=== PATIENT | female | born 1975 | race Caucasian/White ===

== ENCOUNTER 2018-07-07 20:07 | Emergency (ER) | payer OTHER ==
[2018-07-07] MEDS ORDERED: Ketorolac INJ* 30 MG/ML 1 ML VIAL IV PUSH ONE (20:28)
[2018-07-07] MEDS ORDERED: Ketorolac INJ* 30 MG/ML 1 ML VIAL IM ONE (21:41)
--- NOTE | 2018-07-07 22:53 | ED ---
Lower Extremity - HPI Summary HPI Summary: 43-year-old female presents with left knee injury today. States she dislocated her left patella. States this happened before. States that it happened when she was just sitting. She states this feels like it still is a little bit shifted. Her leg is in extension. No numbness or tingling. States pain radiates up to her hip and down to her foot. she states can not place weight on area due to pain. Has history of knee issues. No numbness or tingling. - History of Current Complaint Chief Complaint: EDExtremityLower Stated Complaint: KNEE INJURY Time Seen by Provider: 07/07/18 20:23 Pain Intensity: 5 - Allergies/Home Medications Allergies/Adverse Reactions: Allergies Allergy/AdvReac Type Severity Reaction Status Date / Time No Known Allergies Allergy Verified 07/08/15 20:46 PMH/Surg Hx/FS Hx/Imm Hx Endocrine/Hematology History: Denies: Hx Anticoagulant Therapy Cardiovascular History: Denies: Hx Myocardial Infarction Infectious Disease History: No Infectious Disease History: Denies: Traveled Outside the [place] in Last 30 Days - [place] - Family History Known Family History: Positive: Hypertension - Social History Alcohol Use: Weekly Substance Use Type: Reports: None Smoking Status (MU): Never Smoked Tobacco Review of Systems Negative: Fever Negative: Chest Pain Negative: Shortness Of Breath Positive: Myalgia - left leg pain All Other Systems Reviewed And Are Negative: Yes Physical Exam Triage Information Reviewed: Yes Vital Signs On Initial Exam: Initial Vitals Temp Pulse Resp BP Pulse Ox 97.8 F 66 16 129/83 100 07/07/18 20:30 07/07/18 20:30 07/07/18 20:30 07/07/18 20:30 07/07/18 20:30 Vital Signs Reviewed: Yes Appearance: Positive: Well-Appearing Skin: Positive: Warm, Dry Head/Face: Positive: Normal Head/Face Inspection Eyes: Positive: Normal, Conjunctiva Clear ENT: Positive: Pharynx normal Respiratory/Lung Sounds: Positive: Clear to Auscultation, Breath Sounds Present Cardiovascular: Positive: Normal, RRR Musculoskeletal: Positive: Other - nontender back, tenderness lateral ascpect of left knee, patella center of knee, good pulses, sensation grossly intact, pos ballotment Neurological: Positive: Normal Psychiatric: Positive: Normal Diagnostics - Vital Signs Vital Signs Temp Pulse Resp BP Pulse Ox 07/07/18 21:00 71 99 07/07/18 20:50 70 99 07/07/18 20:30 97.8 F 66 16 129/83 100 - Laboratory Lab Statement: Any lab studies that have been ordered have been reviewed, and results considered in the medical decision making process. - Radiology leg Radiology Interpretation Completed By: ED Physician Summary of Radiographic Findings: no fx Re-Evaluation - Re-Evaluation First Eval Change: Improved Comment: feeling better after toradol Lower Extremity Course/Dx - Course Course Of Treatment: 43-year-old female presents with left knee injury today. States she dislocated her left patella. States this happened before. States that it happened when she was just sitting. She states this feels like it still is a little bit shifted. Her leg is in extension. No numbness or tingling. States pain radiates up to her hip and down to her foot. she states can not place weight on area due to pain. Has history of knee issues. No numbness or tingling. On exam tenderness over lateral aspect of the knee. Tenderness over fibular head. Positive ballottement. X-ray read by me as normal. No patellar dislocation noted. Discussed will place a knee immobilizer and have follow-up with orthopedic. patient understands and agrees with plan. - Diagnoses Differential Diagnosis/HQI/PQRI: Positive: Dislocation, Fracture (Closed), Sprain Provider Diagnoses: Left knee injury Discharge - Sign-Out/Discharge Documenting (check all that apply): Patient Departure - Discharge Plan Condition: Good Disposition: HOME Patient Education Materials: Knee Pain (ED) Referrals: Ysabel Senior [Primary Care Provider] - Duy Wyatt MD [Medical Doctor] - Additional Instructions: Use immobilizer Stay off knee as much as possible Ice, elevate, Ibuprofen or Tylenol every 6 hours for pain Follow up with ortho Return to ED if develop or any new or worsening symptoms - Billing Disposition and Condition Condition: GOOD Disposition: Home
[2018-07-07 23:35] VITALS: BP 110/72
--- NOTE | 2018-07-08 07:57 | RAD ---
HISTORY: left knee pain COMPARISONS: None VIEWS: 4 , frontal and crosstable lateral views of the left knee and foreleg FINDINGS: BONE DENSITY: Normal. BONES: There is no displaced fracture. JOINTS: There is no arthropathy. There is no suprapatellar joint effusion or lipohemarthrosis. ALIGNMENT: There is no dislocation. SOFT TISSUES: Unremarkable. OTHER FINDINGS: None. IMPRESSION: NO ACUTE OSSEOUS INJURY. IF SYMPTOMS PERSIST, RECOMMEND REPEAT IMAGING. R0
== END 2018-07-07 23:30 | disposition home or self-care (01) ==
LOC: ED 20:07
DX: S89.92XA Unspecified injury of left lower leg, initial encounter (principal); X58.XXXA Exposure to other specified factors, initial encounter; Y92.9 Unspecified place or not applicable
CPT/HCPCS: 96372; 96374; 99283; J1885

== ENCOUNTER 2018-08-19 08:15 | Emergency (ER) | payer SELFPAY ==
[2018-08-19 08:28] VITALS: BP 108/74
--- NOTE | 2018-08-19 08:55 | UC ---
Hand/Wrist HPI - HPI Summary HPI Summary: PATIENT JAMMED HER LEFT FOURTH FINGER 2 DAYS AGO. DEVELOPED BRUISING PAIN AND SWELLING. WAS SEEN AT THE [facility] AND HAD A FINGER X-RAY ORDERED. X-RAY WAS DONE TODAY AT THE [facility]. SHE IS UNABLE TO TAKE HER RING OFF DUE TO THE SWELLING SO SHE CAME HERE FOR RING REMOVAL. - History Of Current Complaint Chief Complaint: UCUpperExtremity Stated Complaint: JEWLERY REMOVAL/CUT OFF Time Seen by Provider: 08/19/18 08:31 Hx Obtained From: Patient Hx Last Menstrual Period: 1 month ago Onset/Duration: Sudden Onset, Lasting Days, Still Present Severity Initially: Mild Severity Currently: Mild Pain Intensity: 2 Pain Scale Used: 0-10 Numeric Character Of Pain: Sharp, Aching Aggravating Factor(s): Movement Alleviating Factor(s): Rest Associated Signs And Symptoms: Positive: Swelling, Bruising - Allergies/Home Medications Allergies/Adverse Reactions: Allergies Allergy/AdvReac Type Severity Reaction Status Date / Time No Known Allergies Allergy Verified 08/19/18 08:25 Home Medications: Home Medications NK [No Home Medications Reported] 08/19/18 [History Confirmed 08/19/18] PMH/Surg Hx/FS Hx/Imm Hx Previously Healthy: Yes Other History Of: Negative For: Anticoagulant Therapy - Surgical History Surgical History: Yes Surgery Procedure, Year, and Place: plate/pin L leg - Family History Known Family History: Positive: Hypertension - Social History Alcohol Use: Weekly Substance Use Type: None Smoking Status (MU): Never Smoked Tobacco - Immunization History Most Recent Influenza Vaccination: refused Most Recent Tetanus Shot: refused Most Recent Pneumonia Vaccination: not indicated Review of Systems All Other Systems Reviewed And Are Negative: Yes Constitutional: Positive: Negative Skin: Positive: Bruising Respiratory: Positive: Negative Cardiovascular: Positive: Negative Gastrointestinal: Positive: Negative Musculoskeletal: Positive: Arthralgia, Decreased ROM, Edema Physical Exam Triage Information Reviewed: Yes Appearance: Well-Appearing, No Pain Distress, Well-Nourished Vital Signs: Initial Vital Signs Temp 98.1 F 08/19/18 08:21 Pulse 71 08/19/18 08:21 Resp 14 08/19/18 08:21 BP 108/74 08/19/18 08:21 Pulse Ox 100 08/19/18 08:21 Vital Signs Reviewed: Yes Eyes: Positive: Conjunctiva Clear ENT: Positive: Hearing grossly normal Neck: Positive: Supple Respiratory: Positive: No respiratory distress, No accessory muscle use Cardiovascular: Positive: Pulses Normal Abdomen Description: Positive: Soft Musculoskeletal: Positive: ROM Limited @ - LEFT 4TH FINGER, Edema @ - LEFT 4TH FINGER PIP JOINT Neurological: Positive: Alert Psychological: Positive: Age Appropriate Behavior Skin: Positive: Other - BRUISING LEFT 4TH FINGER. Negative: Rashes Hand/Wrist Course/Dx - Course Course Of Treatment: RING WAS REMOVED USING RING CUTTER WITHOUT DIFFICULTY. XRAYS REVIEWED. NO FRACTURE OR DISLOCATION. FINGER SPLINTED. ADVISED REST, ICE, OTC MEDS NEEDED FOR DISCOMFORT. [facility] IF [facility]. - Differential Dx/Diagnosis Provider Diagnosis: Ring or other jewelry causing external constriction, initial encounter, Sprain of left ring finger Discharge - Sign-Out/Discharge Documenting (check all that apply): Patient Departure All imaging exams completed and their final reports reviewed: No Studies - Discharge Plan Condition: Stable Disposition: HOME Patient Education Materials: Finger Sprain (ED) Referrals: Ysabel Senior [Primary Care Provider] - If Needed Additional Instructions: YOUR RING WAS REMOVED WITHOUT DIFFICULTY. YOUR XRAY WAS REVIEWED AND IS NEGATIVE FOR FRACTURE OR DISLOCATION. WEAR THE SPLINT FOR COMFORT. IBUPROFEN NEEDED. YOUR SYMPTOMS SHOULD IMPROVE WITHIN 1-2 WEEKS. - Billing Disposition and Condition Condition: STABLE Disposition: Home
== END 2018-08-19 08:50 | disposition home or self-care (01) ==
LOC: UCEAST 08:15
DX: S60.445A External constriction of left ring finger, initial encounter (principal); S63.615A Unspecified sprain of left ring finger, initial encounter; W23.0XXA Caught, crushed, jammed, or pinched between moving objects, initial encounter; Y92.9 Unspecified place or not applicable
CPT/HCPCS: 99213; G0463

== ENCOUNTER 2019-11-17 10:26 | Emergency (ER) | payer OTHER ==
[2019-11-17 11:21] LABS: ABS Basophils 0.1 10^3/ul (0-0.2); ABS Eosinophils 0.2 10^3/ul (0-0.6); ABS Lymphocytes 1.9 10^3/ul (1.0-4.8); ABS Monocytes 0.4 10^3/ul (0-0.8); ABS Neutrophils 3.4 10^3/ul (1.5-7.7); Eosinophil % 3.1 %; Hematocrit 37 % (35-47); Hemoglobin 12.7 g/dL (12.0-16.0); Lymphocyte % 31.6 %; Mean Corpuscular HGB Conc 35 g/dL (31-36); Mean Corpuscular Hemoglobin 31 pg (27-31); Mean Corpuscular Volume 90 fL (80-97); Mean Platelet Volume 8.5 fL (7.4-10.4); Platelet Count 214 10^3/uL (150-450); Red Blood Count 4.09 10^6 /uL (3.70-4.87); Red Cell Distribution Width 13 % (10-15); White Blood Count 5.9 10^3/uL (3.5-10.8)
--- OUTSIDE RECORDS SUMMARY | 2019-11-17 11:27 | XMS REPORT | Continuity of Care Document ---
:1975 External Reference #:[id number] Author Name Chris Pierre M.D., [facility] Address [address] [place] [address] Care Team Providers Name Role Phone Ysabel Senior, [employer] SCI[employer]IST - Family Care Team Information Machine Technician [phone] Problems Active Problems Provider Date Dizziness and giddiness Chris Pierre M.D., [facility] Onset: 10/24/2019 Social History Type Date Description Comments Sex Unknown Tobacco Use Start: Unknown Never Smoked Cigarettes Smoking Status Reviewed: 10/24/19 Never Smoked Cigarettes ETOH Use Denies alcohol use Allergies, Adverse Reactions, Alerts Description No Information Available Medications Active Medications SIG Qnty Indications Ordering Provider Date Midodrine HCL 1 by mouth one 180tabs Chris Pierre 10/24/2019 10mg or twice a day Mela Carpio, [facility] Tablets as needed History Medications No Active Medications Unknown 10/24/2019 - 10/24/2019 Immunizations Description No Information Available Vital Signs Date Vital Result Comment 10/24/2019 11:02am BP Systolic Sitting Left Arm 100 mmHg BP Diastolic Sitting Left Arm 60 mmHg Heart Rate 53 /min Respiratory Rate 16 /min Height 64 inches 5'4" Weight 149.00 lb BMI (Body Mass Index) 25.6 kg/m2 BSA (Body Surface Area) 1.73 m2 [place] body weight in kilograms 54 kg O2 Saturation Level with Exercise 99 % Results Description No Information Available Procedures Date Code Description Status 10/24/2019 06203 EKG-Tracing And Report Completed Medical Devices Description No Information Available Encounters Type Date Location Provider Dx Diagnosis Office Visit 10/24/2019 Cardiology Office Chris Pierre R42 Dizziness and 10:40a Mela Carpio, [facility] giddiness Assessments Date Code Description Provider 10/24/2019 R42 Dizziness and giddiness Chris Pierre M.D., [facility] Plan of Treatment 10/24/2019 - Chris Pierre M.D., [facility] Dizziness and giddinessNew Orders:Echocardiogram, Ordered: 10/24/19Comments:Most of her symptoms may be explained by the presence of hypotension. The episodes during sitting are less clear.In any case, I advised her to increase hydration and Na intake before the exercise and to try midodrine 1 hour before exercise. She will have an echo to rule out structural heart diseaseAllNew Medication:Midodrine HCL 10 mg - 1 by mouth one or twice a day as neededNo Active Medications -Follow up:Follow up with us on a PRN basis. She will call me to discuss the result of the echo. Functional Status Functional Condition Comment Date Status Independent with all ADL's Active Mental Status Description No Information Available Referrals Description No Information Available
[2019-11-17 11:40] LABS: Albumin/Globulin Ratio 1.9 (1-3); BUN/Creatinine Ratio 13.8 (8-20); Calcium 9.1 mg/dL (8.6-10.3); EGFR African American 94.7 (>60); EGFR Non-African American 78.3 (>60); Globulin 2.1 g/dL (2-4); Potassium 4.2 mmol/L (3.5-5.0); Total Bilirubin 0.4 mg/dL (0.2-1.0); Total Protein 6.1 g/dL (6.4-8.9)
--- NOTE | 2019-11-17 11:40 | ED ---
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 Patient reports having a dry cough this morning when waking up which has since disappeared. Patient denies CP. She used an inhaler which she noted did not help. She usually avoids dairy during allergy season but had some dairy last night which she believes could have contributed to the current episode. History of similar symptoms several years ago which was attributed to asthma. No FHx of heart disease noted. The patient rates the pain 6/10 in severity. Symptoms aggravated by nothing. Symptoms alleviated by nothing. No cardiac hx or hx DVT/ PE. - History of Current Complaint Chief Complaint: EDChestPainROMI Stated Complaint: SOB/CHEST PRESSURE PER PT Time Seen by Provider: 11/17/19 11:03 Hx Obtained From: Patient Onset/Duration: Sudden Onset, Still Present Pain Intensity: 6 Character: Cough (Nonproductive) - disappeared after morning Aggravating Factor(s): Nothing Alleviating Factor(s): Nothing - Allergy/Home Medications Allergies/Adverse Reactions: Allergies Allergy/AdvReac Type Severity Reaction Status Date / Time No Known Allergies Allergy Verified 11/17/19 10:47 Home Medications: Home Medications NK [No Home Medications Reported] 08/19/18 [History Confirmed 11/17/19] PMH/Surg Hx/FS Hx/Imm Hx Endocrine/Hematology History: Denies: Hx Anticoagulant Therapy, Hx Diabetes Cardiovascular History: Denies: Hx Hypertension, Hx Myocardial Infarction, Hx Pacemaker/ICD History: Denies: Hx Renal Disease Sensory History: Denies: Hx Hearing Aid Psychiatric History: Denies: Hx Panic Disorder - Cancer History Cancer Type, 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 Negative: Chest Pain Positive: Cough - dry but has since resolved All Other Systems Reviewed And Are Negative: Yes Physical Exam - Summary Physical Exam Summary: Constitutional: Well-developed, Well-nourished, Alert. (-) Distressed Skin: Warm, Dry HENT: Normocephalic; Atraumatic Eyes: Conjunctiva normal Neck: Musculoskeletal ROM normal neck. (-) JVD, (-) Stridor, (-) Nuchal rigidity Cardio: Rhythm regular, rate normal, Heart sounds normal; Intact distal pulses; Radial pulses are 2+ and symmetric. (-) Murmur Pulmonary/Chest wall: Effort normal. (-) Respiratory distress, (-) Wheezes, (-) Rales Abd: Soft, (-) tenderness, (-) Distension, (-) Guarding, (-) Rebound Musculoskeletal: (-) Edema Lymph: (-) Cervical adenopathy Neuro: Alert, Oriented x3 Psych: Mood and affect Normal Triage Information Reviewed: Yes Vital Signs On Initial Exam: Initial Vitals Temp Pulse Resp BP Pulse Ox 98.3 F 61 14 114/86 100 11/17/19 10:44 11/17/19 10:44 11/17/19 10:44 11/17/19 10:44 11/17/19 10:44 Vital Signs Reviewed: Yes Procedures - Sedation Patient Received Moderate/Deep Sedation with Procedure: No Diagnostics - Vital Signs Vital Signs Temp Pulse Resp BP Pulse Ox 11/17/19 11:14 56 13 116/76 99 11/17/19 11:01 53 11 98 11/17/19 10:44 98.3 F 61 14 114/86 100 - Laboratory Lab Results: Lab Results 11/17/19 Range/Units 11:15 WBC 5.9 (3.5-10.8) 10^3/uL RBC 4.09 (3.70-4.87) 10^6 /uL Hgb 12.7 (12.0-16.0) g/dL Hct 37 (35-47) % MCV 90 (80-97) fL MCH 31 (27-31) pg MCHC 35 (31-36) g/dL RDW 13 (10-15) % Plt Count 214 (150-450) 10^3/uL MPV 8.5 (7.4-10.4) fL Neut % (Auto) 58.1 % Lymph % (Auto) 31.6 % [place] % (Auto) 6.3 % Eos % (Auto) 3.1 % Baso % (Auto) 0.9 % Absolute Neuts (auto) 3.4 (1.5-7.7) 10^3/ul Absolute Lymphs (auto) 1.9 (1.0-4.8) 10^3/ul Absolute Monos (auto) 0.4 (0-0.8) 10^3/ul Absolute Eos (auto) 0.2 (0-0.6) 10^3/ul Absolute Basos (auto) 0.1 (0-0.2) 10^3/ul Absolute Nucleated RBC 0.0 10^3/ul Nucleated RBC % 0.0 Result Diagrams: 11/17/19 11:15 11/17/19 11:15 Lab Statement: Any lab studies that have been ordered have been reviewed, and results considered in the medical decision making process. - Radiology CXR Radiology Interpretation Completed By: Radiologist Summary of Radiographic Findings: IMPRESSION: No acute cardiopulmonary process by radiograph. Dr. Kinsey has reviewed this report. - EKG 1033 Cardiac Rate: Bradycardia EKG Rhythm: Sinus Bradycardia Summary of EKG Findings: An EKG at 1033 reveals sinus bradycardia at a rate of 57 bpm with nml axis and nml intervals. No STEMI. No acute changes. ED physician has reviewed and interpreted this EKG. Re-Evaluation - Re-Evaluation First Eval Re-Evaluation Time: 12:10 Change: Improved - d/w patient labs, EKG and CXR. Will give albuterol Disposition - Course Course Of Treatment: 44-year-old presents with cough and chest tightness. - well-appearing, no active chest pain. No difficulty in breathing or chest x- ray unremarkable. Troponin negative.Chest Pain DDX: The patient is well appearing, with stable vitals. Given the patient's clinical presentation, highest on differential is atypical CP 2/2 asthma/URI. Although less likely, differential also includes the following: --Pneumothorax: Equal breath sounds, story inconsistent since gradual onset of symptoms. CXR shows no evidence of pneumothorax. Unlikely. --Cardiac tamponade: The history and physical are not concerning for tamponade. No Pulsus Paradoxus, no tachypnea. Unlikely. -- Mediastinitis or esophageal rupture: The history is not consistent, as the patient has had no recent history of significant wretching, instrumentation, or mediastinal surgeries. Unlikely. --Aortic dissection: The patient does not describe the classical tearing chest pain radiating into the back, and the CXR does not show mediastinal widening or other signs of aortic dissection. Unlikely. --PE: Vitals wnl (not hypoxic, tachycardic or tachypneic). PERC negatibve. --ACS: The initial EKG shows no ischemic changes. The initial troponin is not elevated. Heart score 1. - Diagnoses Provider Diagnoses: Chest tightness, Cough Discharge ED - Sign-Out/Discharge Documenting (check all that apply): Patient Departure - discharge - Discharge Plan Condition: Stable Disposition: HOME Patient Education Materials: Chest Pain (ED) Referrals: Ysabel Senior [Primary Care Provider] - Additional Instructions: You were seen in the emergency department for chest pain. Your EKG (heart tracing), labs and chest x-ray did not show any cause for pain. Important that you follow up with you primary care doctor in the next 1-2 days to help schedule an outpatient stress test. Please return to the emergency department for continued chest pain, trouble breathing, passing out, or if you're concerned. - Billing Disposition and Condition Condition: STABLE Disposition: Home - Attestation Statements Document Initiated by Brynibmag: Yes Documenting Scribe: Wood Soto Provider For Whom Neil is Documenting (Include Credential): Dr.Caelyn Damaris Kinsey MD Scribe Attestation: IWood, scribed for Dr.Caelyn Damaris Kinsey MD on 11/17/19 at 1838. Scribe Documentation Reviewed: Yes Provider Attestation: The documentation as recorded by the Wood wu accurately reflects the service I personally performed and the decisions made by me, Dr.Caelyn Damaris Kinsey MD Status of Scribmag Document: Viewed
[2019-11-17] MEDS ORDERED: Albuterol HFA INHALER* 8 gm MDI INH ONE (12:13)
[2019-11-17 12:43] VITALS: BP 112/69
== END 2019-11-17 12:42 | disposition home or self-care (01) ==
LOC: ED 10:26
DX: R07.9 Chest pain, unspecified (principal); R05 Cough
CPT/HCPCS: 36415; 71045; 80053; 84484; 85025; 93005; 99282